=== PATIENT | female | born 1945 | race Caucasian/White ===

== ENCOUNTER 2018-09-09 14:49 | Emergency (ER) | payer MEDICARE, MEDICAID ==
[~2018-09-09] VITALS: Ht 154.9 cm; Wt 51.8 kg
[2018-09-09 15:23] LABS: BASOPHILS # (AUTO) 0.04 x10^3/uL (0-0.1); BASOPHILS % (AUTO) 0 % (0-1); EOSINOPHILS # (AUTO) 0.36 x10^3/uL (0-0.4); EOSINOPHILS % (AUTO) 4 % (1-7); LYMPHOCYTES # (AUTO) 2.01 x10^3/uL (1-3.4); LYMPHOCYTES % (AUTO) 22 % (22-44); MD NO; MEAN CORPUSCULAR HEMOGLOBIN 29.3 pg (27.0-34.8); MEAN CORPUSCULAR HGB CONC 32.6 g/dL (32.4-35.8); MEAN CORPUSCULAR VOLUME 89.8 fL (80-100); MEAN PLATELET VOLUME 7.8 fL (7.4-10.4); MONOCYTES # (AUTO) 0.65 x10^3/uL (0.2-0.8); MONOCYTES % (AUTO) 7 % (2-9); NEUTROPHILS # (AUTO) 6.05 x10^3/uL (1.8-6.8); NEUTROPHILS % (AUTO) 66 % (42-75); PLATELET COUNT 384 x10^3/uL (130-400); RED BLOOD COUNT 5.66 x10^6/uL (3.82-5.3); RED CELL DISTRIBUTION WIDTH 14.7 % (9.6-15.2)
[2018-09-09] MEDS ORDERED: ASPIRIN 81 MG TABLET CHEW PO ONE (15:30)
[2018-09-09] MEDS ORDERED: PLEASE ENTER HEIGHT AND WEIGHT MC SCH (15:30)
[2018-09-09 15:36] LABS: ALANINE AMINOTRANSFERASE 25 U/L (12-78); ALBUMIN 3.6 g/dL (3.4-5.0); ANION GAP 6 mmol/L (5-15); CALCIUM 9.3 mg/dL (8.5-10.1); CHLORIDE 111 mmol/L (98-107); CREATININE 0.94 mg/dL (0.55-1.02)
[2018-09-09 15:40] LABS: ALKALINE PHOSPHATASE 103 U/L (45-117); BILIRUBIN,TOTAL 0.4 mg/dL (0.2-1.0); TOTAL PROTEIN 7.1 g/dL (6.4-8.2); TROPONIN I < 0.015 ng/mL (0.000-0.045)
--- NOTE | 2018-09-09 16:43 | NUR ---
GULLET SLITTER: PT TO ROOM FROM [facility], AMBULATORY UPRIGHT STEADY GAIT.
[2018-09-09] MEDS ORDERED: CLOP75TA52 PO (17:04)
[2018-09-09] MEDS ORDERED: LISI-167 PO (17:04)
[2018-09-09] MEDS ORDERED: HIGH CHOLESTEROL PO (17:04)
[2018-09-09 17:58] VITALS: BP 153/76
--- NOTE | 2018-09-09 17:59 | NUR ---
TASK RN : Patient/Caregiver given discharge instructions and they have confirmed that they understand the instructions. Patient ambulatory with steady gait.
== END 2018-09-09 18:00 | disposition home or self-care (01) ==
LOC: EDBD 14:49 → ED 17:17
DX: J44.1 Chronic obstructive pulmonary disease with (acute) exacerbation (principal); I10 Essential (primary) hypertension; F17.200 Nicotine dependence, unspecified, uncomplicated; I25.10 Atherosclerotic heart disease of native coronary artery without angina pectoris; Z86.79 Personal history of other diseases of the circulatory system
CPT/HCPCS: 36415; 71046; 80053; 83880; 84484; 85025; 93005; 99284

== ENCOUNTER → 2019-05-13 | Outpatient (CLI) | payer OTHER, MEDICAID ==
[~2019-05-13] MED LIST: CLOP75TA52 PO; HIGH CHOLESTEROL PO; LISI-167 PO
== END | disposition home or self-care (01) ==
LOC: CFH 11:58
PROVIDERS: ATTEND Orthopaedic Surgery
DX: S52.571A Other intraarticular fracture of lower end of right radius, initial encounter for closed fracture (principal); M19.031 Primary osteoarthritis, right wrist; M25.831 Other specified joint disorders, right wrist; M77.8 Other enthesopathies, not elsewhere classified; W19.XXXA Unspecified fall, initial encounter; Y93.89 Activity, other specified; Y92.89 Other specified places as the place of occurrence of the external cause; Y99.8 Other external cause status

== ENCOUNTER 2020-05-16 14:44 | Emergency (ER) | payer OTHER, MEDICAID ==
[~2020-05-16] VITALS: Ht 154.9 cm; Wt 52.8 kg
[2020-05-16] MEDS ORDERED: ALBUTEROL SULFATE 2.5 MG/3 ML ONE (15:20)
[2020-05-16] MEDS ORDERED: methylPREDNISolone SOD SUCC 125 MG/2 ML ONE (15:20)
[2020-05-16] MEDS ORDERED: ALBUTEROL/IPRATROPIUM 2.5MG/0.5MG, 3 ML NPPB PRN (15:30)
[2020-05-16] MEDS ORDERED: methylPREDNISolone SOD SUCC 125 MG/2 ML IVPush ONE (15:30)
[2020-05-16] MEDS ORDERED: SODIUM CHLORIDE FLUSH 10ML SYR IVF ONE (15:30)
[2020-05-16 15:32] LABS: BASOPHILS % (AUTO) 1 % (0-1); EOSINOPHILS % (AUTO) 6 % (1-7); LYMPHOCYTES % (AUTO) 25 % (22-44); MEAN CORPUSCULAR HGB CONC 33.5 g/dL (32.4-35.8); MEAN PLATELET VOLUME 7.8 fL (7.4-10.4); MONOCYTES % (AUTO) 9 % (2-9); NEUTROPHILS % (AUTO) 60 % (42-75); PLATELET COUNT 347 x10^3/uL (130-400); RED BLOOD COUNT 4.77 x10^6/uL (3.82-5.3); RED CELL DISTRIBUTION WIDTH 13.4 % (9.6-15.2)
[2020-05-16] MEDS ORDERED: ALBUTEROL/IPRATROPIUM 2.5MG/0.5MG, 3 ML ONE (15:38)
[2020-05-16 15:43] LABS: ALBUMIN 3.2 g/dL (3.4-5.0); ANION GAP 8 mmol/L (5-15); CALCIUM 9.1 mg/dL (8.5-10.1); CHLORIDE 111 mmol/L (98-107); CREATININE 0.82 mg/dL (0.55-1.02)
--- NOTE | 2020-05-16 15:43 | NUR ---
Vianey, daughter in law, okay to update, .
[2020-05-16 15:47] LABS: MD NO
[2020-05-16 16:32] VITALS: BP 115/48
--- NOTE | 2020-05-16 16:33 | NUR ---
Pt states she would not be able to provide stool sample at this time. MD PALAK [facility], made aware. Okay to d/c without stool sample.
--- NOTE | 2020-05-16 16:48 | NUR ---
Pt given education about home O2 monitoring and that she is currently receiving 3L via her NC. Per Mahi CID NP pt "can increase her O2 at home." Pt denied admission offer from MD Rausch. Pt also given education about probiotics. Communicated understanding.
== END 2020-05-16 16:53 | disposition home or self-care (01) ==
LOC: ED 16:45
DX: J44.1 Chronic obstructive pulmonary disease with (acute) exacerbation (principal); R06.00 Dyspnea, unspecified; I10 Essential (primary) hypertension; R94.31 Abnormal electrocardiogram [ECG] [EKG]; F17.200 Nicotine dependence, unspecified, uncomplicated
CPT/HCPCS: 36415; 71045; 80048; 82040; 85025; 93005; 96374; 99283; J2930; 99285

== ENCOUNTER 2020-05-29 11:28 | Emergency (ER) | payer OTHER, MEDICAID ==
[~2020-05-29] VITALS: Ht 157.5 cm; Wt 52.0 kg
--- NOTE | 2020-05-29 11:39 | NUR ---
Cami Rasheed [phone] please call primary contact
--- NOTE | 2020-05-29 11:45 | NUR ---
xr and lab at bedside
[2020-05-29] MEDS ORDERED: ALBUTEROL/IPRATROPIUM 2.5MG/0.5MG, 3 ML ONE ×2 (11:47→12:13)
[2020-05-29] MEDS ORDERED: methylPREDNISolone SOD SUCC 125 MG/2 ML ONE (11:47)
[2020-05-29] MEDS: ALBUTEROL/IPRATROPIUM 2.5MG/0.5MG, 3 ML NPPB SCH ×2 (11:49→12:14)
[2020-05-29 12:14] LABS: ALANINE AMINOTRANSFERASE 22 U/L (12-78); ALBUMIN 3.6 g/dL (3.4-5.0); ANION GAP 7 mmol/L (5-15); BASOPHILS % (AUTO) 1 % (0-1); CALCIUM 9.4 mg/dL (8.5-10.1); CHLORIDE 109 mmol/L (98-107); EOSINOPHILS % (AUTO) 3 % (1-7); LYMPHOCYTES % (AUTO) 19 % (22-44); MEAN CORPUSCULAR HEMOGLOBIN 28.6 pg (27.0-34.8); MEAN CORPUSCULAR HGB CONC 33.1 g/dL (32.4-35.8); MEAN PLATELET VOLUME 8.4 fL (7.4-10.4); MONOCYTES % (AUTO) 7 % (2-9); NEUTROPHILS % (AUTO) 72 % (42-75); PLATELET COUNT 315 x10^3/uL (130-400); RED BLOOD COUNT 5.04 x10^6/uL (3.82-5.3); RED CELL DISTRIBUTION WIDTH 14.3 % (9.6-15.2)
[2020-05-29 12:17] LABS: MD NO
[2020-05-29 12:19] LABS: ALKALINE PHOSPHATASE 132 U/L (45-117); BILIRUBIN,TOTAL 0.7 mg/dL (0.2-1.0); TROPONIN I < 0.015 ng/mL (0.000-0.045)
[2020-05-29] MEDS ORDERED: methylPREDNISolone SOD SUCC 125 MG/2 ML IV ONE (12:30)
[2020-05-29] MEDS ORDERED: SODIUM CHLORIDE FLUSH 10ML SYR IVF ONE (12:30)
--- NOTE | 2020-05-29 13:04 | NUR ---
ETELVINA MCKEON, [facility] [phone]
[2020-05-29 13:29] VITALS: BP 118/59
--- NOTE | 2020-05-29 13:35 | NUR ---
TASK RN: Patient/Caregiver given discharge instructions and they have confirmed that they understand the instructions. Patient ambulatory with steady gait. Pt has her own oxygen concentrator and verbalizes that she prefers to wait in lobby for her son to come and pick her up.
== END 2020-05-29 13:36 | disposition home or self-care (01) ==
LOC: ED 11:53
DX: J44.1 Chronic obstructive pulmonary disease with (acute) exacerbation (principal); R06.02 Shortness of breath; R94.31 Abnormal electrocardiogram [ECG] [EKG]; I10 Essential (primary) hypertension; Z87.891 Personal history of nicotine dependence
CPT/HCPCS: 36415; 71045; 80053; 83605; 83880; 84484; 85025; 87040; 93005; 94640; 96374; 99284; J2930; 96372; 99283

== ENCOUNTER 2020-06-16 14:29 | Inpatient (IN) | payer OTHER, MEDICAID ==
[~2020-06-16] VITALS: Ht 154.9 cm; Wt 52.7 kg
[2020-06-16] MEDS ORDERED: methylPREDNISolone SOD SUCC 125 MG/2 ML ONE (14:54)
[2020-06-16] MEDS ORDERED: ALBUTEROL/IPRATROPIUM 2.5MG/0.5MG, 3 ML ONE ×2 (14:57→15:35)
[2020-06-16] MEDS ORDERED: SODIUM CHLORIDE FLUSH 10ML SYR IVF ONE (15:00)
[2020-06-16] MEDS ORDERED: methylPREDNISolone SOD SUCC 125 MG/2 ML IVPush ONE (15:00)
[2020-06-16] MEDS ORDERED: ALBUTEROL/IPRATROPIUM 2.5MG/0.5MG, 3 ML NPPB PRN (15:00)
[2020-06-16 15:27] LABS: BASOPHILS % (AUTO) 1 % (0-1); EOSINOPHILS % (AUTO) 6 % (1-7); LYMPHOCYTES % (AUTO) 19 % (22-44); MEAN CORPUSCULAR HEMOGLOBIN 28.8 pg (27.0-34.8); MEAN CORPUSCULAR HGB CONC 33.7 g/dL (32.4-35.8); MEAN PLATELET VOLUME 8.2 fL (7.4-10.4); MONOCYTES % (AUTO) 7 % (2-9); NEUTROPHILS % (AUTO) 68 % (42-75); PLATELET COUNT 313 x10^3/uL (130-400); RED BLOOD COUNT 4.71 x10^6/uL (3.82-5.3); RED CELL DISTRIBUTION WIDTH 14.3 % (9.6-15.2)
--- NOTE | 2020-06-16 15:27 | NUR ---
CC OF SOB AND CP 5/10 IN STERNAL AREA. PT HAS EXPIRATORY WHEEZING NOTED WITH AND WITHOUT STETHASCOPE AND CORSE LUNG SOUNDS THROUGHOUT AND USE OF ACCESSORY MUSCLES. PT SPEAKING 4-5 WORDS AT A TIME BREATHING 38 BPM. PT SITTING UPRIGHT IN GURNEY. PT STATES SHE CANNOT COUGH UP PHELGM. PT ON 3 L NC BASELINE AND IS CURRENTLY ON 3L NC WITH 99% OXYGEN READING. CONNECTED TO SPLITTER HAND.
[2020-06-16 15:29] LABS: MD NO
--- NOTE | 2020-06-16 15:31 | NUR ---
AFTER BREATHING TREATMENT LUNG SOUNDS ARE STILL COARSE WITH EXPIRATORY WHEEZING. PT STATES SHE FEELS "A LITTLE BIT BETTER BUT IT WONT LAST LONG".
--- NOTE | 2020-06-16 15:35 | NUR ---
PALAK RAMOS UPDATED, VERBAL ORDERS TO GIVE 2ND BREATHING TREATMENT.
[2020-06-16 15:36] LABS: ALANINE AMINOTRANSFERASE 19 U/L (12-78); ALBUMIN 3.3 g/dL (3.4-5.0); ANION GAP 9 mmol/L (5-15); CHLORIDE 111 mmol/L (98-107); CREATININE 0.75 mg/dL (0.55-1.02)
--- NOTE | 2020-06-16 15:37 | NUR ---
Report from Diana.
[2020-06-16 15:40] LABS: ALKALINE PHOSPHATASE 98 U/L (45-117); BILIRUBIN,TOTAL 0.4 mg/dL (0.2-1.0); TOTAL PROTEIN 6.4 g/dL (6.4-8.2); TROPONIN I < 0.015 ng/mL (0.000-0.045)
--- NOTE | 2020-06-16 15:40 | NUR ---
REPORT GIVEN TO DEVANTE MCKEE
[2020-06-16] MEDS ORDERED: SODIUM CHLORIDE FLUSH 10ML SYR IVF PRN (16:30)
[2020-06-16] MEDS ORDERED: SODIUM CHLORIDE 0.9% 1,000 ML IV ONE (16:30)
[2020-06-16] MEDS ORDERED: MAGNESIUM SULFATE PMX 2GM/50ML 50 ML IVPB ONE (16:30)
--- NOTE | 2020-06-16 16:48 | NUR ---
iVMEDICATIONS STARTED, PT ON MONITOR. EVEN RESPIRTAORY RATE
[2020-06-16] MEDS ORDERED: MAGNESIUM SULFATE PMX 2GM/50ML 50 ML ONE (16:51)
[2020-06-16] MEDS ORDERED: CEFTRIAXONE PMX 1GM/50ML 50 ML ONE (16:59)
[2020-06-16] MEDS ORDERED: ONDANSETRON ODT 4 MG PO PRN (17:00)
[2020-06-16] MEDS ORDERED: ONDANSETRON 2MG/ML, 2ML IVPush PRN (17:00)
[2020-06-16] MEDS ORDERED: ENALAPRILAT 1.25 MG/ML, 2ML IV PRN (17:00)
[2020-06-16] MEDS ORDERED: PHARMACY MAY ADJ FOR RENAL FX MC PRN (17:00)
[2020-06-16] MEDS ORDERED: MELATONIN 5 MG TABLET PO PRN (17:00)
[2020-06-16] MEDS ORDERED: BISACODYL 10 MG SUPP PR PRN (17:00)
[2020-06-16] MEDS ORDERED: IBUPROFEN 600 MG TABLET PO PRN (17:00)
[2020-06-16] MEDS ORDERED: hydrALAzine 20 MG/ML, 1ML IVPush PRN (17:00)
[2020-06-16] MEDS ORDERED: POLYETHYLENE GLYCOL 17 GM PACKET PO PRN (17:00)
[2020-06-16] MEDS ORDERED: LABETALOL 5MG/ML, 20ML IVPush PRN (17:00)
[2020-06-16] MEDS ORDERED: CEFTRIAXONE PMX 1GM/50ML 50 ML IVPB SCH (17:00)
[2020-06-16] MEDS ORDERED: DOCUSATE 100 MG CAPSULE PO PRN (17:00)
[2020-06-16] MEDS ORDERED: HYDROcodone/APAP 5/325 TABLET PO PRN (17:00)
[2020-06-16] MEDS ORDERED: ACETAMINOPHEN 325 MG TABLET PO PRN (17:00)
--- NOTE | 2020-06-16 17:12 | NUR ---
pt hr 96,calm and cooperative, awaiting admit room. call light in reach.
--- NOTE | 2020-06-16 17:43 | NUR ---
BREAK RN: REPORT GIVEN TO IRSAEL MCKEE. PT RTG TO ROOM 425
[2020-06-16 18:09] LABS: CHOL/HDL RATIO 3.5; CHOLESTEROL, TOTAL 193 mg/dL (140-239); HDL CHOL % 28 % (28-40); HDL CHOLESTEROL (DIRECT) 55 mg/dL (40-60); LDL CHOLESTEROL,CALCULATED 117 mg/dL (54-169); LDL/HDL RATIO 2.1 (0.5-3.0); TRIGLYCERIDES 105 mg/dL (50-200); TROPONIN I < 0.015 ng/mL (0.000-0.045); VLDL CHOLESTEROL 21 mg/dL (0-25)
[2020-06-16 19:33] VITALS: BP 92/58
[2020-06-16 20:40] VITALS: BP 92/58
[2020-06-16] MEDS: FAMOTIDINE 20 MG TABLET PO SCH (22:21)
[2020-06-16] MEDS: ASCORBIC ACID 500 MG TABLET PO SCH (22:21)
[2020-06-16] MEDS: NICOTINE 7 MG/24 HR PATCH.TD24 TD SCH (22:21)
[2020-06-16] MEDS: methylPREDNISolone SOD SUCC 125 MG/2 ML IVPush SCH (22:22)
[2020-06-16] MEDS: ENOXAPARIN 40 MG/0.4 ML SQ SCH (22:22)
[2020-06-16] MEDS: DOXYCYCLINE 100MG CAP PO SCH (22:24)
[2020-06-16 22:38] VITALS: BP 107/60
[2020-06-17 00:24] VITALS: BP 102/60
[2020-06-17 04:34] LABS: BASOPHILS % (AUTO) 0 % (0-1); EOSINOPHILS % (AUTO) 0 % (1-7); LYMPHOCYTES % (AUTO) 6 % (22-44); MEAN CORPUSCULAR HEMOGLOBIN 28.5 pg (27.0-34.8); MEAN CORPUSCULAR HGB CONC 33.2 g/dL (32.4-35.8); MEAN PLATELET VOLUME 8.6 fL (7.4-10.4); MONOCYTES % (AUTO) 1 % (2-9); NEUTROPHILS % (AUTO) 93 % (42-75); PLATELET COUNT 300 x10^3/uL (130-400); RED BLOOD COUNT 4.38 x10^6/uL (3.82-5.3); RED CELL DISTRIBUTION WIDTH 14.3 % (9.6-15.2)
[2020-06-17 04:42] LABS: CHLORIDE 111 mmol/L (98-107)
[2020-06-17 04:48] LABS: ANION GAP 7 mmol/L (5-15); CALCIUM 8.3 mg/dL (8.5-10.1); CREATININE 0.77 mg/dL (0.55-1.02)
[2020-06-17] MEDS: methylPREDNISolone SOD SUCC 125 MG/2 ML IVPush SCH ×3 (06:17→20:50)
[2020-06-17 06:38] LABS: MD SCAN
[2020-06-17 06:41] VITALS: BP 177/71
[2020-06-17] MEDS ORDERED: LISINOPRIL 20 MG TABLET PO SCH (09:00)
[2020-06-17] MEDS: DOXYCYCLINE 100MG CAP PO SCH ×2 (09:46→20:49)
[2020-06-17] MEDS: FAMOTIDINE 20 MG TABLET PO SCH ×2 (09:47→20:49)
[2020-06-17] MEDS: ASCORBIC ACID 500 MG TABLET PO SCH ×2 (09:47→20:50)
[2020-06-17] MEDS: CLOPIDOGREL 75 MG TABLET PO SCH (09:47)
[2020-06-17] MEDS: LISINOPRIL 20 MG TABLET PO SCH (09:47)
[2020-06-17] MEDS: ZINC SULFATE 220 MG CAPSULE PO SCH (13:43)
[2020-06-17 14:18] VITALS: BP 129/61
[2020-06-17] MEDS: NICOTINE 7 MG/24 HR PATCH.TD24 TD SCH (17:14)
[2020-06-17] MEDS: ENOXAPARIN 40 MG/0.4 ML SQ SCH (17:18)
[2020-06-17] MEDS: FLUTICASONE/VILANTEROL 200-25MCG/INH INH SCH (20:00)
[2020-06-17] MEDS: TIOTROPIUM BROMIDE 18 MCG/INH INH SCH (20:00)
[2020-06-17 20:37] VITALS: BP 142/75
[2020-06-17] MEDS ORDERED: ALBUTEROL HFA 90 MCG/SPRAY INH PRN (21:30)
[2020-06-18] MEDS: methylPREDNISolone SOD SUCC 125 MG/2 ML IVPush SCH ×3 (02:30→21:01)
[2020-06-18 02:31] VITALS: BP 131/68
[2020-06-18 06:08] LABS: ANION GAP 8 mmol/L (5-15); CHLORIDE 109 mmol/L (98-107); CREATININE 0.89 mg/dL (0.55-1.02)
[2020-06-18 07:39] LABS: D-DIMER 0.83 ug/mlFEU (0.00-0.52); INTERNATIONAL NORMALIZED RATIO 0.96 (0.93-1.1); PROTHROMBIN TIME 10.3 Seconds (9.6-11.5)
[2020-06-18 08:06] VITALS: BP 125/68
[2020-06-18] MEDS: LISINOPRIL 20 MG TABLET PO SCH (08:21)
[2020-06-18] MEDS: CLOPIDOGREL 75 MG TABLET PO SCH (08:22)
[2020-06-18] MEDS: DOXYCYCLINE 100MG CAP PO SCH ×2 (08:22→21:01)
[2020-06-18] MEDS: ZINC SULFATE 220 MG CAPSULE PO SCH (08:22)
[2020-06-18] MEDS: ASCORBIC ACID 500 MG TABLET PO SCH ×2 (08:22→21:01)
[2020-06-18] MEDS: TIOTROPIUM BROMIDE 18 MCG/INH INH SCH ×2 (08:25→09:00)
[2020-06-18] MEDS: FLUTICASONE/VILANTEROL 200-25MCG/INH INH SCH ×2 (08:25→09:00)
[2020-06-18 13:43] VITALS: BP 124/73
[2020-06-18] MEDS: ENOXAPARIN 40 MG/0.4 ML SQ SCH (17:29)
[2020-06-18] MEDS: NICOTINE 7 MG/24 HR PATCH.TD24 TD SCH (17:30)
[2020-06-18 20:16] VITALS: BP 111/62
[2020-06-18] MEDS: FAMOTIDINE 20 MG TABLET PO SCH (21:01)
[2020-06-19 02:14] VITALS: BP 103/63
[2020-06-19 05:17] LABS: BASOPHILS % (AUTO) 0 % (0-1); EOSINOPHILS % (AUTO) 0 % (1-7); LYMPHOCYTES % (AUTO) 4 % (22-44); MEAN CORPUSCULAR HEMOGLOBIN 28.7 pg (27.0-34.8); MEAN CORPUSCULAR HGB CONC 33.1 g/dL (32.4-35.8); MEAN PLATELET VOLUME 8.4 fL (7.4-10.4); MONOCYTES % (AUTO) 3 % (2-9); NEUTROPHILS % (AUTO) 93 % (42-75); PLATELET COUNT 384 x10^3/uL (130-400); RED BLOOD COUNT 4.68 x10^6/uL (3.82-5.3); RED CELL DISTRIBUTION WIDTH 14.2 % (9.6-15.2)
[2020-06-19 05:24] LABS: ANION GAP 6 mmol/L (5-15); CALCIUM 8.8 mg/dL (8.5-10.1); CHLORIDE 106 mmol/L (98-107)
[2020-06-19 05:53] LABS: CREATININE 0.91 mg/dL (0.55-1.02)
[2020-06-19 05:57] LABS: MD SCAN
[2020-06-19 07:39] VITALS: BP 148/81
[2020-06-19] MEDS: FLUTICASONE/VILANTEROL 200-25MCG/INH INH SCH ×2 (09:00→09:30)
[2020-06-19] MEDS: TIOTROPIUM BROMIDE 18 MCG/INH INH SCH ×2 (09:00→09:30)
[2020-06-19] MEDS: LISINOPRIL 20 MG TABLET PO SCH (10:30)
[2020-06-19] MEDS: CLOPIDOGREL 75 MG TABLET PO SCH (10:30)
[2020-06-19] MEDS: ASCORBIC ACID 500 MG TABLET PO SCH (10:30)
[2020-06-19] MEDS: ZINC SULFATE 220 MG CAPSULE PO SCH (10:30)
[2020-06-19] MEDS: DOXYCYCLINE 100MG CAP PO SCH (10:30)
[2020-06-19] MEDS: methylPREDNISolone SOD SUCC 125 MG/2 ML IVPush SCH (10:34)
[2020-06-19] MEDS ORDERED: HYDR-826 PO (11:06)
[2020-06-19] MEDS ORDERED: DOXY100C2 PO (11:06)
[2020-06-19] MEDS ORDERED: FLUT1BLS INH (11:06)
[2020-06-19] MEDS ORDERED: PRED20TA PO (11:06)
[2020-06-19 13:13] VITALS: BP 101/62
== END 2020-06-19 17:00 | disposition home or self-care (01) | DRG 189 ==
LOC: ED 15:12 → EDIP 16:29 → 4WST 18:04
PROVIDERS: ADMIT Family Medicine; ATTEND Family Medicine
DX: J96.21 Acute and chronic respiratory failure with hypoxia (principal); I16.0 Hypertensive urgency; F17.210 Nicotine dependence, cigarettes, uncomplicated; I10 Essential (primary) hypertension; I25.10 Atherosclerotic heart disease of native coronary artery without angina pectoris; I25.2 Old myocardial infarction; J43.9 Emphysema, unspecified; Z20.822 Contact with and (suspected) exposure to COVID-19; Z79.899 Other long term (current) drug therapy
CPT/HCPCS: 36415; 71045; 80048; 80053; 80061; 82607; 83036; 83615; 83880; 84145; 84484; 85025; 85379; 85384; 85610; 85730; 87635; 93005; 93306; 94640; G0378; J0696; J1650; J2930; J3475

== ENCOUNTER 2020-07-28 16:25 | Emergency (ER) | payer OTHER, MEDICAID ==
[~2020-07-28] VITALS: Ht 149.9 cm; Wt 50.0 kg
[~2020-07-28 16:25] MED LIST changes: +DOXY100C5 PO; +FLUT1BLS INH; +HYDR-826 PO; +PRED20TA PO
--- NOTE | 2020-07-28 17:06 | NUR ---
PT SITTING UP IN BED, ATTACHED TO CARDIAC MONITORS, BP CUFF AND SPO2. PT ON NORMAL HOME O2. PT C/O SEVERAL DAYS OF SOB. WHEEZING AUSCULTATED. "USUALLY I WAIT UNTIL IT GETS A LOT WORSE TO COME IN." PT DROVE SELF TO ED.
[2020-07-28] MEDS ORDERED: ALBUTEROL/IPRATROPIUM 2.5MG/0.5MG, 3 ML ONE (17:15)
[2020-07-28] MEDS ORDERED: ALBUTEROL/IPRATROPIUM 2.5MG/0.5MG, 3 ML NPPB ONE (17:30)
[2020-07-28 17:34] LABS: BASOPHILS % (AUTO) 1 % (0-1); EOSINOPHILS % (AUTO) 3 % (1-7); LYMPHOCYTES % (AUTO) 27 % (22-44); MEAN CORPUSCULAR HEMOGLOBIN 28.3 pg (27.0-34.8); MEAN CORPUSCULAR HGB CONC 33.4 g/dL (32.4-35.8); MEAN PLATELET VOLUME 8.4 fL (7.4-10.4); MONOCYTES % (AUTO) 8 % (2-9); NEUTROPHILS % (AUTO) 61 % (42-75); PLATELET COUNT 320 x10^3/uL (130-400); RED BLOOD COUNT 5.12 x10^6/uL (3.82-5.3); RED CELL DISTRIBUTION WIDTH 14.7 % (9.6-15.2)
--- NOTE | 2020-07-28 17:34 | NUR ---
BREATHING TX COMPLETED. PT WHEEZING HAS DECREASED. PT VERBALIZES DECREASED SOB.
[2020-07-28 17:46] LABS: ALBUMIN 3.3 g/dL (3.4-5.0); ANION GAP 2 mmol/L (5-15); CALCIUM 9.4 mg/dL (8.5-10.1); CHLORIDE 110 mmol/L (98-107)
[2020-07-28 17:50] LABS: TROPONIN I < 0.015 ng/mL (0.000-0.045)
--- NOTE | 2020-07-28 18:31 | NUR ---
BREAK RN: PT IS A&O X4. VS STABLE. PT REPORTS SHE HAS HER HOME OXYGEN FOR DC. PT DISCHARGED BY DR MERINO.
[2020-07-28 18:32] VITALS: BP 156/96
[2020-11-29] MEDS ORDERED: IPRA3AMP30 INH (10:15)
[2020-11-29] MEDS ORDERED: ATOR20TA37 PO (10:15)
[2020-11-29] MEDS ORDERED: AMOX875T PO (10:15)
[2020-12-05] MEDS ORDERED: SULF-23 PO ×2 (11:06)
== END 2020-07-28 18:45 | disposition home or self-care (01) ==
LOC: ED 18:42
DX: J44.1 Chronic obstructive pulmonary disease with (acute) exacerbation (principal); R07.89 Other chest pain; R06.02 Shortness of breath; R06.00 Dyspnea, unspecified; I10 Essential (primary) hypertension; Z87.891 Personal history of nicotine dependence
CPT/HCPCS: 36415; 71045; 80048; 82040; 84484; 85025; 93005; 94640; 99283; J7512

== ENCOUNTER 2020-11-21 18:11 | Emergency (ER) | payer OTHER, MEDICAID ==
[~2020-11-21] VITALS: Ht 149.9 cm; Wt 46.0 kg
[~2020-11-21 18:11] MED LIST changes: +DOXY100C2 PO; -DOXY100C5 PO
[2020-11-21 18:17] VITALS: BP 131/70
== END 2020-11-21 20:24 | disposition left against medical advice (07) ==
LOC: ED 18:30
DX: R05 Cough (principal); R06.02 Shortness of breath; Z53.21 Procedure and treatment not carried out due to patient leaving prior to being seen by health care provider

== ENCOUNTER → 2020-11-28 | Outpatient (CLI) | payer OTHER, MEDICAID ==
[~2020-11-28] MED LIST changes: +AMOX875T PO; +ATOR20TA37 PO; +IPRA3AMP30 INH
[2020-11-28 16:37] LABS: ALANINE AMINOTRANSFERASE 17 U/L (12-78); ALBUMIN 2.9 g/dL (3.4-5.0); ANION GAP 4 mmol/L (5-15); CALCIUM 8.8 mg/dL (8.5-10.1); CHLORIDE 107 mmol/L (98-107)
[2020-11-28 16:40] LABS: ALKALINE PHOSPHATASE 84 U/L (45-117); BILIRUBIN,TOTAL 0.5 mg/dL (0.2-1.0); CREATININE 0.98 mg/dL (0.55-1.02); TOTAL PROTEIN 6.8 g/dL (6.4-8.2)
== END | disposition home or self-care (01) ==
LOC: STAR 15:19
PROVIDERS: ATTEND Otolaryngology
DX: Z01.818 Encounter for other preprocedural examination (principal); I25.2 Old myocardial infarction; Z20.822 Contact with and (suspected) exposure to COVID-19
CPT/HCPCS: 36415; 80053; 93005; U0003; U0005

== ENCOUNTER 2020-12-04 05:23 | Observation (INO) | payer OTHER, MEDICAID ==
[~2020-12-04] VITALS: Ht 149.9 cm; Wt 50.2 kg
[~2020-12-04 05:23] MED LIST changes: +CEFOTETAN 2 GM ONE; +DEXAMETHASONE 4 MG/ML, 1ML ONE
[2020-12-04] MEDS ORDERED: INHALER INH (06:18)
[2020-12-04] MEDS ORDERED: CHLORHEXIDINE 15 ML UDC PO ONE (06:30)
[2020-12-04] MEDS ORDERED: LACTATED RINGERS 1,000 ML IV SCH (06:30)
[2020-12-04] MEDS ORDERED: EPINEPHRINE TOPICAL SOLN 1 MG/ML, 30ML ONE (06:46)
[2020-12-04] MEDS ORDERED: LIDOCAINE/PF 1%, 30ML ONE (06:46)
[2020-12-04] MEDS ORDERED: FLUORESCEIN SODIUM 500 MG/5 ML ONE (06:46)
[2020-12-04] MEDS ORDERED: EPINEPHRINE 1 MG/ML, 1ML ONE (06:46)
[2020-12-04] MEDS ORDERED: FENTANYL PF 250 MCG/5ML ONE (07:09)
[2020-12-04] MEDS ORDERED: OXYcodone 5 MG/5 ML ORAL.SOL UDC PO PRN (07:30)
[2020-12-04] MEDS ORDERED: DIPHENHYDRAMINE 50 MG/ML, 1ML IVPush PRN (07:30)
[2020-12-04] MEDS ORDERED: HALOPERIDOL 5 MG/ML IV PRN (07:30)
[2020-12-04] MEDS ORDERED: PROMETHAZINE 25 MG/ML, 1ML IVPush PRN (07:30)
[2020-12-04] MEDS ORDERED: MEPERIDINE/PF 25MG/0.5ML IVPush PRN (07:30)
[2020-12-04] MEDS ORDERED: hydrALAzine 20 MG/ML, 1ML IV PRN (07:30)
[2020-12-04] MEDS ORDERED: LABETALOL 5MG/ML, 20ML IV PRN (07:30)
[2020-12-04] MEDS ORDERED: HYDROmorphone 1 MG/ML, 1ML INJ IVPush PRN (07:30)
[2020-12-04] MEDS ORDERED: ACETAMINOPHEN 325 MG TABLET PO PRN (07:30)
[2020-12-04] MEDS ORDERED: FENTANYL PF 100 MCG/2ML IV PRN (07:30)
[2020-12-04] MEDS ORDERED: ALBUTEROL SULFATE 200 PUFFS/8.5 GR INH ONE (07:42)
[2020-12-04] MEDS ORDERED: DEXAMETHASONE 4 MG/ML, 1ML ONE (07:42)
[2020-12-04] MEDS ORDERED: EPHEDRINE 50 MG/ML, 1ML ONE (07:42)
[2020-12-04] MEDS ORDERED: BACITRACIN OINT 500U/GM, 15 GM ONE (08:12)
[2020-12-04] MEDS ORDERED: ALBUTEROL HFA 90 MCG/SPRAY ONE (08:29)
[2020-12-04] MEDS ORDERED: SUCCINYLCHOLINE 20 MG/ML, 10ML ONE (08:44)
[2020-12-04] MEDS ORDERED: ROCURONIUM 10MG/ML,5ML ONE (08:44)
[2020-12-04] MEDS ORDERED: PROPOFOL 10 MG/ML, 20ML ONE (08:44)
[2020-12-04] MEDS ORDERED: CEFAZOLIN 1,000 MG ONE (08:44)
[2020-12-04] MEDS ORDERED: NEOSTIGMINE 1 MG/ML, 10ML ONE (08:44)
[2020-12-04] MEDS ORDERED: ONDANSETRON 2MG/ML, 2ML ONE (08:44)
[2020-12-04] MEDS ORDERED: GLYCOPYRROLATE 0.2MG/1ML, 5ML ONE (08:44)
[2020-12-04] MEDS ORDERED: SUGAMMADEX 200 MG/2 ML IVPush ONE (08:55)
[2020-12-04] MEDS ORDERED: ALBUTEROL/IPRATROPIUM 2.5MG/0.5MG, 3 ML NPPB PRN ×2 (09:30→12:00)
[2020-12-04] MEDS ORDERED: MORPHINE SULFATE 4 MG/ML, 1ML IVPush PRN (12:00)
[2020-12-04] MEDS ORDERED: ONDANSETRON 2MG/ML, 2ML IVPush PRN (12:00)
[2020-12-04] MEDS ORDERED: HYDROcodone/APAP 5/325 TABLET PO PRN (12:00)
[2020-12-04 12:20] VITALS: BP 147/77
[2020-12-04] MEDS: LACTATED RINGERS 1,000 ML IV SCH (12:57)
[2020-12-04] MEDS ORDERED: [UNRECOGNIZED DRUG - OTHER] INH PRN (13:00)
[2020-12-04] MEDS ORDERED: NICOTINE 14MG/24 HR PATCH.TD24 TD SCH (13:00)
[2020-12-04] MEDS ORDERED: AMOXICILLIN/CLAV 875-125MG TABLET PO SCH (13:00)
[2020-12-04] MEDS: ACETAMINOPHEN 325 MG TABLET PO PRN ×2 (13:05→20:32)
[2020-12-04] MEDS: methylPREDNISolone SOD SUCC 40 MG/ML IV SCH (13:59)
[2020-12-04] MEDS: AMPICILLIN/SULBACTAM 3 GM in SODIUM CHLORIDE 0.9% 100 ML IV SCH ×2 (13:59→20:31)
[2020-12-04] MEDS ORDERED: ALBUTEROL SULFATE INH PRN (14:00)
[2020-12-04] MEDS: ALBUTEROL/IPRATROPIUM 2.5MG/0.5MG, 3 ML NPPB SCH ×2 (15:45→20:01)
[2020-12-04] MEDS ORDERED: ALBUTEROL SULFATE HOMEINH PRN (16:00)
[2020-12-04 19:37] VITALS: BP 108/65
[2020-12-04] MEDS: BUDESONIDE 0.5 MG/2 ML INHA NPPB SCH (20:01)
[2020-12-04] MEDS ORDERED: ATORVASTATIN 20 MG TABLET PO SCH ×2 (21:00)
[2020-12-04] MEDS ORDERED: DOXYCYCLINE 100MG TABLET PO SCH (21:00)
[2020-12-05 01:32] VITALS: BP 103/63
[2020-12-05] MEDS: AMPICILLIN/SULBACTAM 3 GM in SODIUM CHLORIDE 0.9% 100 ML IV SCH ×2 (02:05→08:09)
[2020-12-05] MEDS: methylPREDNISolone SOD SUCC 40 MG/ML IV SCH (02:05)
[2020-12-05] MEDS: LACTATED RINGERS 1,000 ML IV SCH ×2 (02:05→02:20)
[2020-12-05] MEDS: BUDESONIDE 0.5 MG/2 ML INHA NPPB SCH (07:27)
[2020-12-05] MEDS: ALBUTEROL/IPRATROPIUM 2.5MG/0.5MG, 3 ML NPPB SCH (07:27)
[2020-12-05 07:43] VITALS: BP 100/57
[2020-12-05 09:09] LABS: BASOPHILS % (AUTO) 0 % (0-1); EOSINOPHILS % (AUTO) 0 % (1-7); LYMPHOCYTES % (AUTO) 6 % (22-44); MEAN CORPUSCULAR HEMOGLOBIN 27.7 pg (27.0-34.8); MEAN CORPUSCULAR HGB CONC 32.2 g/dL (32.4-35.8); MEAN PLATELET VOLUME 8.7 fL (7.4-10.4); MONOCYTES % (AUTO) 2 % (2-9); NEUTROPHILS % (AUTO) 91 % (42-75); PLATELET COUNT 410 x10^3/uL (130-400); RED BLOOD COUNT 4.77 x10^6/uL (3.82-5.3); RED CELL DISTRIBUTION WIDTH 14.9 % (9.6-15.2)
[2020-12-05 09:21] LABS: ANION GAP 9 mmol/L (5-15); CALCIUM 9.7 mg/dL (8.5-10.1); CHLORIDE 107 mmol/L (98-107)
[2020-12-05] MEDS ORDERED: PRED20TA PO (11:06)
[2020-12-05] MEDS ORDERED: SULF-23 PO (11:06)
[2020-12-05] MEDS ORDERED: IPRA3AMP30 INH (11:06)
[2020-12-05 11:31] VITALS: BP 134/71
== END 2020-12-05 12:30 | disposition home or self-care (01) ==
LOC: OUT 05:23 → 4NE 10:45 → OUT 13:28
PROVIDERS: ADMIT Otolaryngology; ATTEND Otolaryngology
DX: J32.0 Chronic maxillary sinusitis (principal); J34.2 Deviated nasal septum; J95.822 Acute and chronic postprocedural respiratory failure; J44.0 Chronic obstructive pulmonary disease with (acute) lower respiratory infection; J44.1 Chronic obstructive pulmonary disease with (acute) exacerbation; I25.10 Atherosclerotic heart disease of native coronary artery without angina pectoris; I21.4 Non-ST elevation (NSTEMI) myocardial infarction; K21.9 Gastro-esophageal reflux disease without esophagitis; I10 Essential (primary) hypertension; E78.5 Hyperlipidemia, unspecified; F41.8 Other specified anxiety disorders; I25.2 Old myocardial infarction; F17.200 Nicotine dependence, unspecified, uncomplicated; Z79.899 Other long term (current) drug therapy; Z95.5 Presence of coronary angioplasty implant and graft
CPT/HCPCS: 30520; 31255; 31256; 31267; 36415; 71045; 80048; 85025; 87070; 87075; 87077; 87186; 87205; 88304; 88311; 94640; 96361; 96365; 96366; 96375; 96376; G0378; J0171; J0295; J0690; J1100; J2405; J2704; J2920; J3010; J3490; J7120; J7626; J2710; J0330

== ENCOUNTER 2020-12-11 12:24 | Day surgery (SDC) | payer OTHER, MEDICAID ==
[~2020-12-11] VITALS: Ht 149.9 cm; Wt 47.1 kg
[~2020-12-11 12:24] MED LIST changes: -CEFOTETAN 2 GM ONE; -DEXAMETHASONE 4 MG/ML, 1ML ONE; +INHALER INH; +SULF-23 PO
[2020-12-11 12:49] VITALS: BP 162/83
[2020-12-11] MEDS ORDERED: CHLORHEXIDINE 15 ML UDC PO ONE (13:00)
== END 2020-12-11 15:50 | disposition home or self-care (01) ==
LOC: OUT 12:24
PROVIDERS: ATTEND Otolaryngology
DX: J31.0 Chronic rhinitis (principal); J34.2 Deviated nasal septum; J44.9 Chronic obstructive pulmonary disease, unspecified; Z20.822 Contact with and (suspected) exposure to COVID-19
CPT/HCPCS: 87635

== ENCOUNTER 2021-01-03 14:39 | Inpatient (IN) | payer OTHER, MEDICAID ==
[~2021-01-03] VITALS: Ht 149.9 cm; Wt 49.2 kg
[~2021-01-03 14:39] MED LIST changes: -DOXY100C2 PO; +DOXY100C5 PO
--- NOTE | 2021-01-03 14:51 | NUR ---
biba for sob and chest congestion. pt recently diagnosed with sinus infection taking po doxy. no covid vaccine. hx copd. 3 L NC O2 at home. pt postioned to comfort. attached to monitors. vss. davis
[2021-01-03] MEDS ORDERED: ALBUTEROL/IPRATROPIUM 2.5MG/0.5MG, 3 ML ONE (16:14)
[2021-01-03 16:20] LABS: BASOPHILS % (AUTO) 1 % (0-1); EOSINOPHILS % (AUTO) 8 % (1-7); LYMPHOCYTES % (AUTO) 22 % (22-44); MEAN CORPUSCULAR HEMOGLOBIN 27.8 pg (27.0-34.8); MEAN CORPUSCULAR HGB CONC 32.5 g/dL (32.4-35.8); MEAN PLATELET VOLUME 8.6 fL (7.4-10.4); MONOCYTES % (AUTO) 9 % (2-9); NEUTROPHILS % (AUTO) 61 % (42-75); PLATELET COUNT 304 x10^3/uL (130-400); RED BLOOD COUNT 4.88 x10^6/uL (3.82-5.3); RED CELL DISTRIBUTION WIDTH 15.1 % (9.6-15.2)
[2021-01-03] MEDS: ALBUTEROL/IPRATROPIUM 2.5MG/0.5MG, 3 ML NPPB SCH ×2 (16:21→16:29)
[2021-01-03] MEDS ORDERED: SODIUM CHLORIDE FLUSH 10ML SYR IVF ONE (16:30)
[2021-01-03] MEDS ORDERED: COVID-19 VACC,MRNA(MODERNA)/PF 100 MCG/0.5ML IM-VACC ONE (16:30)
[2021-01-03 16:35] LABS: ALANINE AMINOTRANSFERASE 101 U/L (12-78); ANION GAP 9 mmol/L (5-15); CALCIUM 9.4 mg/dL (8.5-10.1); CHLORIDE 107 mmol/L (98-107)
[2021-01-03 16:39] LABS: ALKALINE PHOSPHATASE 455 U/L (45-117); BILIRUBIN,TOTAL 1.2 mg/dL (0.2-1.0); TOTAL PROTEIN 6.7 g/dL (6.4-8.2); TROPONIN I < 0.015 ng/mL (0.000-0.045)
--- NOTE | 2021-01-03 16:42 | NUR ---
PT STATING SHE CHANGED HER MIND ABOUT RECIEVING THE COVID VACCINE AND WOULD LIKE MORE TIME TO THINK ABOUT IN. VSS. ESHA PT TO ADMIT TO MEDICAL
--- NOTE | 2021-01-03 18:34 | NUR ---
PT RESTING IN BED. VSS. NADN. CALL LIGHT IN REACH.
[2021-01-03] MEDS ORDERED: POLYETHYLENE GLYCOL 17 GM PACKET PO PRN (19:00)
[2021-01-03] MEDS ORDERED: ONDANSETRON 2MG/ML, 2ML IVPush PRN (19:00)
[2021-01-03] MEDS ORDERED: BISACODYL 10 MG SUPP PR PRN (19:00)
[2021-01-03] MEDS ORDERED: ACETAMINOPHEN 325 MG TABLET PO PRN (19:00)
--- NOTE | 2021-01-03 19:07 | NUR ---
MYRNA RN NOTE: PT'S INSURANCE IS [employer] WHICH IS NOT CONTRACTED AT ANY HOSPITAL IN [facility]. PT'S INSURANCE FAXED WITH APPROPRIATE DOCUMENTATION. CONFIRMATION OF FAX RECEIPT RECEIVED.
--- NOTE | 2021-01-03 19:59 | NUR ---
LAB CALLED THIS RN TO SAY THEY HAD NO COVID SWAB SAMPLE FOR PT, AND THE ORDER WAS PLACED AT 1630. PT SWABBED AT THIS TIME, WITH POC SWAB AND WALKED TO LAB, PER MD ORDER. PT TOLERATED WELL, WATER PROVIDED, AND PT SITTING UP IN BED FOR POSITION OF COMFORT, REMAINS ON CR MONITOR, AND SIDERAILS UP X2 AND CALL LIGHT WITHIN REACH.
[2021-01-03] MEDS ORDERED: methylPREDNISolone SOD SUCC 125 MG/2 ML IVPush ONE (20:00)
--- NOTE | 2021-01-03 20:39 | NUR ---
PT ASSISTED TO BEDSIDE COMMODE AND IS STABLE TO STAND. REMAINS ON CR MONITOR.
--- NOTE | 2021-01-03 20:56 | NUR ---
REPORT CALLED TO FLOOR RN, AND PT PACKAGED FOR TRANSFER TO FLOOR. PT HAS A NEGATIVE COVID POC TEST, AND VERIFIED WITH FLOOR RN, AND ON LAB REPORT.
[2021-01-03] MEDS ORDERED: HEPARIN 5,000 UNITS/ML, 1ML ONE (21:00)
[2021-01-03] MEDS ORDERED: methylPREDNISolone SOD SUCC 125 MG/2 ML ONE (21:00)
[2021-01-03] MEDS: HEPARIN 5,000 UNITS/ML, 1ML SQ SCH (21:10)
[2021-01-03] MEDS: SODIUM CHLORIDE 0.9% 1,000 ML IV SCH (21:10)
[2021-01-03 21:15] VITALS: BP 99/64
[2021-01-03] MEDS ORDERED: ALBUTEROL HFA 90 MCG/SPRAY INH PRN (21:30)
[2021-01-03] MEDS: ALBUTEROL-IPRATROPIUM MDI INH INH SCH (21:30)
--- NOTE | 2021-01-03 21:32 | NUR ---
PT BEING TRANSPORTED TO FLOOR BED. REPORT CALLED TO FLOOR RN, PTS IV INTACT, HAS SOME DRAINAGE IN DRESSING, BUT FLUSHES EASILY, NO SWELLING OR REDNESS NOTED. PTS IVMF HUNG ON DIAL A FLOW TO RUN AT 75ML/HR. HEPARIN SQ GIVEN TO PT AND SHE TOLERATED WELL.
[2021-01-03] MEDS: ATORVASTATIN 20 MG TABLET PO SCH (22:58)
[2021-01-04 00:21] VITALS: BP 123/76
[2021-01-04] MEDS: methylPREDNISolone SOD SUCC 125 MG/2 ML IVPush SCH ×3 (02:58→16:53)
[2021-01-04] MEDS: HEPARIN 5,000 UNITS/ML, 1ML SQ SCH ×3 (02:59→20:38)
[2021-01-04 05:20] LABS: BASOPHILS % (AUTO) 0 % (0-1); EOSINOPHILS % (AUTO) 0 % (1-7); LYMPHOCYTES % (AUTO) 20 % (22-44); MEAN CORPUSCULAR HGB CONC 32.6 g/dL (32.4-35.8); MEAN PLATELET VOLUME 9.4 fL (7.4-10.4); MONOCYTES % (AUTO) 1 % (2-9); NEUTROPHILS % (AUTO) 79 % (42-75); PLATELET COUNT 276 x10^3/uL (130-400); RED BLOOD COUNT 4.66 x10^6/uL (3.82-5.3); RED CELL DISTRIBUTION WIDTH 15.3 % (9.6-15.2)
[2021-01-04 05:40] LABS: ALBUMIN 2.5 g/dL (3.4-5.0); ANION GAP 6 mmol/L (5-15); CALCIUM 8.9 mg/dL (8.5-10.1); CHLORIDE 108 mmol/L (98-107)
[2021-01-04 05:44] LABS: ALANINE AMINOTRANSFERASE 86 U/L (12-78); ALKALINE PHOSPHATASE 408 U/L (45-117); BILIRUBIN,TOTAL 0.9 mg/dL (0.2-1.0); CREATININE 0.63 mg/dL (0.55-1.02); TOTAL PROTEIN 6.2 g/dL (6.4-8.2)
[2021-01-04] MEDS: ALBUTEROL-IPRATROPIUM MDI INH INH SCH ×4 (05:51→20:38)
[2021-01-04] MEDS: GUAIFENESIN/DM 200-20MG, 10ML UDC PO PRN (07:44)
[2021-01-04] MEDS: SENNA/DOCUSATE TABLET PO SCH (07:47)
[2021-01-04] MEDS: SODIUM CHLORIDE 0.9% 1,000 ML IV SCH (07:51)
[2021-01-04 08:15] VITALS: BP 108/65
[2021-01-04] MEDS ORDERED: CEFTRIAXONE 1,000 MG IM SCH (10:00)
[2021-01-04] MEDS ORDERED: SODIUM CHLORIDE NASAL SPRAY 45ML BOTTLE NAS PRN (10:00)
[2021-01-04] MEDS ORDERED: CEFTRIAXONE 1,000 MG in DEXTROSE 5% 50 ML IVPB SCH (10:30)
[2021-01-04] MEDS: GUAIFENESIN 100 MG/5 ML, 10ML UDC PO SCH ×3 (10:33→20:38)
[2021-01-04] MEDS: DOXYCYCLINE 100MG TABLET PO SCH ×2 (10:33→20:38)
[2021-01-04 12:03] VITALS: BP 117/72
[2021-01-04 19:23] VITALS: BP 115/65
[2021-01-04] MEDS: ATORVASTATIN 20 MG TABLET PO SCH (20:38)
[2021-01-05] MEDS: methylPREDNISolone SOD SUCC 125 MG/2 ML IVPush SCH ×4 (00:47→18:04)
[2021-01-05 01:33] VITALS: BP 107/64
[2021-01-05] MEDS: ALBUTEROL-IPRATROPIUM MDI INH INH SCH ×4 (05:33→21:30)
[2021-01-05] MEDS: HEPARIN 5,000 UNITS/ML, 1ML SQ SCH ×3 (05:33→21:29)
[2021-01-05] MEDS: GUAIFENESIN 100 MG/5 ML, 10ML UDC PO SCH ×2 (05:34→12:15)
[2021-01-05 05:51] LABS: BASOPHILS % (AUTO) 0 % (0-1); EOSINOPHILS % (AUTO) 0 % (1-7); LYMPHOCYTES % (AUTO) 6 % (22-44); MEAN CORPUSCULAR HEMOGLOBIN 28.2 pg (27.0-34.8); MEAN CORPUSCULAR HGB CONC 32.9 g/dL (32.4-35.8); MEAN PLATELET VOLUME 9.6 fL (7.4-10.4); MONOCYTES % (AUTO) 2 % (2-9); NEUTROPHILS % (AUTO) 92 % (42-75); PLATELET COUNT 289 x10^3/uL (130-400); RED BLOOD COUNT 4.41 x10^6/uL (3.82-5.3)
[2021-01-05 05:57] LABS: ANION GAP 4 mmol/L (5-15); CALCIUM 8.8 mg/dL (8.5-10.1); CHLORIDE 107 mmol/L (98-107); CREATININE 0.66 mg/dL (0.55-1.02)
[2021-01-05 07:39] VITALS: BP 152/62
[2021-01-05] MEDS: SENNA/DOCUSATE TABLET PO SCH (09:16)
[2021-01-05] MEDS: DOXYCYCLINE 100MG TABLET PO SCH ×2 (09:19→21:29)
[2021-01-05] MEDS ORDERED: GUAIFENESIN 100 MG/5 ML, 5ML UDC ONE (12:09)
[2021-01-05 14:03] VITALS: BP 108/63
[2021-01-05] MEDS: SODIUM CHLORIDE 0.9% 1,000 ML IV SCH (17:19)
[2021-01-05] MEDS: PIPERACILLIN/TAZO 3.375 GM in DEXTROSE 5% 50 ML IV SCH ×2 (18:01→21:29)
[2021-01-05 19:11] VITALS: BP 119/70
[2021-01-05 20:13] VITALS: BP 118/64
[2021-01-05] MEDS: ATORVASTATIN 20 MG TABLET PO SCH (21:29)
[2021-01-06] MEDS: methylPREDNISolone SOD SUCC 125 MG/2 ML IVPush SCH ×4 (00:27→17:09)
[2021-01-06 00:55] VITALS: BP 121/68
[2021-01-06 04:21] LABS: BASOPHILS % (AUTO) 0 % (0-1); EOSINOPHILS % (AUTO) 0 % (1-7); LYMPHOCYTES % (AUTO) 6 % (22-44); MEAN CORPUSCULAR HEMOGLOBIN 28.2 pg (27.0-34.8); MEAN CORPUSCULAR HGB CONC 32.7 g/dL (32.4-35.8); MEAN PLATELET VOLUME 9.5 fL (7.4-10.4); MONOCYTES % (AUTO) 2 % (2-9); NEUTROPHILS % (AUTO) 92 % (42-75); PLATELET COUNT 275 x10^3/uL (130-400); RED BLOOD COUNT 4.14 x10^6/uL (3.82-5.3); RED CELL DISTRIBUTION WIDTH 14.9 % (9.6-15.2)
[2021-01-06 04:32] LABS: ANION GAP 3 mmol/L (5-15); CALCIUM 8.3 mg/dL (8.5-10.1); CHLORIDE 106 mmol/L (98-107); CREATININE 0.78 mg/dL (0.55-1.02)
[2021-01-06] MEDS: PIPERACILLIN/TAZO 3.375 GM in DEXTROSE 5% 50 ML IV SCH ×4 (04:50→23:00)
[2021-01-06] MEDS: ALBUTEROL-IPRATROPIUM MDI INH INH SCH ×4 (05:40→21:26)
[2021-01-06] MEDS: HEPARIN 5,000 UNITS/ML, 1ML SQ SCH ×3 (05:40→21:29)
[2021-01-06 08:01] VITALS: BP 112/68
[2021-01-06] MEDS: SENNA/DOCUSATE TABLET PO SCH (09:00)
[2021-01-06] MEDS: DOXYCYCLINE 100MG TABLET PO SCH ×3 (09:00→21:26)
[2021-01-06 13:40] VITALS: BP 147/69
[2021-01-06] MEDS: GUAIFENESIN/DM 200-20MG, 10ML UDC PO PRN (14:25)
[2021-01-06] MEDS: SODIUM CHLORIDE 0.9% 1,000 ML IV SCH (14:25)
[2021-01-06] MEDS ORDERED: OMNIPAQUE 350 MG/ML, 100ML BOTTLE ONE ×2 (15:00)
[2021-01-06 21:02] VITALS: BP 132/75
[2021-01-06] MEDS: ATORVASTATIN 20 MG TABLET PO SCH (21:26)
[2021-01-07] MEDS: methylPREDNISolone SOD SUCC 125 MG/2 ML IVPush SCH ×3 (00:08→10:41)
[2021-01-07 02:30] VITALS: BP 167/77
[2021-01-07] MEDS: PIPERACILLIN/TAZO 3.375 GM in DEXTROSE 5% 50 ML IV SCH ×2 (04:56→10:41)
[2021-01-07] MEDS: ALBUTEROL-IPRATROPIUM MDI INH INH SCH ×2 (05:39→10:49)
[2021-01-07] MEDS: HEPARIN 5,000 UNITS/ML, 1ML SQ SCH (05:40)
[2021-01-07] MEDS: SODIUM CHLORIDE 0.9% 1,000 ML IV SCH (06:40)
[2021-01-07] MEDS ORDERED: DOXY100T PO (08:16)
[2021-01-07] MEDS ORDERED: ALBU18HF INH (08:16)
[2021-01-07] MEDS ORDERED: NICO-486 TD (08:16)
[2021-01-07] MEDS ORDERED: PRED20TA PO (08:16)
[2021-01-07] MEDS: SENNA/DOCUSATE TABLET PO SCH (09:00)
[2021-01-07 10:05] VITALS: BP 123/71
[2021-01-07] MEDS ORDERED: PRED10TA PO (10:26)
[2021-01-07] MEDS ORDERED: PANT40TA3 PO (10:26)
[2021-01-07] MEDS ORDERED: CEFD300C37 PO (10:26)
[2021-01-07] MEDS ORDERED: SENN-211 PO (10:26)
[2021-01-07] MEDS: DOXYCYCLINE 100MG TABLET PO SCH (10:40)
== END 2021-01-07 11:44 | disposition home or self-care (01) | DRG 193 ==
LOC: ED 16:47 → EDIP 17:10 → 3N 21:45
PROVIDERS: ADMIT Family Medicine; ATTEND Internal Medicine
DX: J18.9 Pneumonia, unspecified organism (principal); J96.20 Acute and chronic respiratory failure, unspecified whether with hypoxia or hypercapnia; J44.1 Chronic obstructive pulmonary disease with (acute) exacerbation; E46 Unspecified protein-calorie malnutrition; J44.0 Chronic obstructive pulmonary disease with (acute) lower respiratory infection; I10 Essential (primary) hypertension; F17.210 Nicotine dependence, cigarettes, uncomplicated; E78.5 Hyperlipidemia, unspecified; R74.01 Elevation of levels of liver transaminase levels; D72.819 Decreased white blood cell count, unspecified; R04.0 Epistaxis; Z20.822 Contact with and (suspected) exposure to COVID-19; F41.9 Anxiety disorder, unspecified; Z99.81 Dependence on supplemental oxygen; Z83.3 Family history of diabetes mellitus; Z68.21 Body mass index [BMI] 21.0-21.9, adult; Z90.710 Acquired absence of both cervix and uterus
CPT/HCPCS: 36415; 71045; 71275; 80048; 80053; 80074; 83605; 83735; 84484; 85025; 87040; 87635; 91301; 93005; 96372; G0378; J0696; J1644; J2543; Q9967; U0005; J2930; J7030; J7512; U0003

== ENCOUNTER 2021-01-09 02:47 | Emergency (ER) | payer OTHER, MEDICAID ==
[~2021-01-09] VITALS: Ht 152.4 cm; Wt 40.9 kg
[~2021-01-09 02:47] MED LIST changes: +ALBU18HF INH; +CEFD300C37 PO; +DOXY100T PO; +NICO-486 TD; +PANT40TA3 PO; +PRED10TA PO; +SENN-211 PO
--- NOTE | 2021-01-09 02:57 | NUR ---
BIBA FOR SOB AND A SORE THROAT, SEEN HERE RECENTLY FOR SAME AND DIAGNOSED WITH A SINUS INFECTION. PT REPORTS LAST TIME SHE WAS HERE SHE WAS SWABBED NEGATIVE. AT BASELINE WEARS 3L NC WHILE SLEEPING, WOKE UP AROUND 0200 AND COULD NOT CATCH HER BREATH, TOOK A THROAT SPRAY AND THAT SEEMED TO HELP SOME. PT SATTING 92% ON 4L NC ON EMS ARRIVAL, GIVEN DUONEB ENROUTE. PT PLACED ON SPO2/BP/ECG MONITORING ON ARRIVAL. BED IN LOWEST, RAILS ENGAGED, CALL LIGHT ON LAP, WCTM. YASMIN CYR AT BS FOR EVAL AND POC
[2021-01-09] MEDS ORDERED: ALBUTEROL/IPRATROPIUM 2.5MG/0.5MG, 3 ML ONE (03:14)
[2021-01-09] MEDS ORDERED: BENZOCAINE 20% SPRAY 0.5ML ONE (03:17)
[2021-01-09 03:28] LABS: BASOPHILS % (AUTO) 0 % (0-1); EOSINOPHILS % (AUTO) 0 % (1-7); LYMPHOCYTES % (AUTO) 13 % (22-44); MEAN CORPUSCULAR HEMOGLOBIN 28.4 pg (27.0-34.8); MEAN PLATELET VOLUME 9.1 fL (7.4-10.4); MONOCYTES % (AUTO) 9 % (2-9); NEUTROPHILS % (AUTO) 78 % (42-75); PLATELET COUNT 286 x10^3/uL (130-400); RED BLOOD COUNT 5.24 x10^6/uL (3.82-5.3); RED CELL DISTRIBUTION WIDTH 15.6 % (9.6-15.2)
[2021-01-09] MEDS ORDERED: BENZOCAINE 20% SPRAY 0.5ML TP ONE (03:30)
[2021-01-09] MEDS ORDERED: ALBUTEROL/IPRATROPIUM 2.5MG/0.5MG, 3 ML NPPB ONE (03:30)
[2021-01-09 03:34] LABS: ANION GAP 6 mmol/L (5-15); CALCIUM 8.4 mg/dL (8.5-10.1); CHLORIDE 106 mmol/L (98-107)
[2021-01-09 03:39] LABS: ALANINE AMINOTRANSFERASE 103 U/L (12-78); ALKALINE PHOSPHATASE 265 U/L (45-117); BILIRUBIN,TOTAL 0.8 mg/dL (0.2-1.0); CREATININE 0.66 mg/dL (0.55-1.02); TOTAL PROTEIN 6.7 g/dL (6.4-8.2); TROPONIN I < 0.015 ng/mL (0.000-0.045)
--- NOTE | 2021-01-09 03:48 | NUR ---
pt medicated per jun, pt reports taking home prednisone last night prior to going to bed, erp ordered prednisone to be held at this time. pt provided warm blankets and clean underwear for comfort, assisted onto bedpan to urinate. bed in lowest, rails engaged, call light on lap, wctm.
[2021-01-09 05:33] VITALS: BP 115/67
--- NOTE | 2021-01-09 05:33 | NUR ---
Patient given discharge instructions and they have confirmed that they understand the instructions. Patient ambulatory with steady gait but opted for wheelchair out of ed for comfort. NAD, all questions answered appropriately, denies additional needs at this time. No personal belongings left in room after discharge.
== END 2021-01-09 05:35 | disposition home or self-care (01) ==
LOC: ED 05:11
DX: J43.9 Emphysema, unspecified (principal); R06.00 Dyspnea, unspecified
CPT/HCPCS: 36415; 71045; 80053; 84484; 85025; 93005; 94640